=== PATIENT | female | born 1980 | race Two or more races ===

== ENCOUNTER 2017-12-24 05:20 | Inpatient (IN) | payer MEDICAID ==
[2017-12-24] MEDS ORDERED: LIDOCAINE 1% (MPF) 30 ML INJ (05:44)
[2017-12-24] MEDS ORDERED: METHYLERGONOVINE 0.2 MG INJ IM ×2 (06:00→06:30)
[2017-12-24] MEDS ORDERED: MISOPROSTOL 200 MCG TAB PR ×2 (06:00→06:30)
[2017-12-24] MEDS ORDERED: OXYTOCIN 30 UNITS/LR 500 ML IV ×2 (06:00→06:30)
[2017-12-24] MEDS ORDERED: CARBOPROST 250 MCG INJ IM ×2 (06:00→06:30)
[2017-12-24] MEDS ORDERED: LIDOCAINE 1% (MPF) 30 ML INJ INJ (06:00)
[2017-12-24] MEDS ORDERED: IBUPROFEN 600 MG TAB PO (06:00)
[2017-12-24] MEDS ORDERED: OXYCODONE/ACETAMINOPHEN (5/325) TAB PO (06:00)
[2017-12-24] MEDS: OXYTOCIN 30 UNITS/LR 500 ML IV ×3 (06:02→10:50)
[2017-12-24] MEDS: LACTATED RINGER'S 1,000 ML IV ×3 (06:02→21:40)
[2017-12-24 06:24] LABS: ADD MAN DIFF? NO
[2017-12-24] MEDS: LACTATED RINGER'S 1,000 ML IV* ×3 (06:26→22:26)
[2017-12-24 06:27] LABS: BASOPHILS % 0.4 % (0.0-2.0); EOSINOPHILS # 0.1 10^3/ul (0.0-0.5); EOSINOPHILS % 0.5 % (0.0-7.0); HEMATOCRIT 39.2 % (37.0-47.0); HEMOGLOBIN 13.1 g/dl (12.0-16.0); LYMPHOCYTES % 21.2 % (15.0-51.0); MEAN CORPUSCULAR HEMOGLOBIN 30.6 pg (29.0-33.0); MEAN CORPUSCULAR HGB CONC 33.4 g/dl (32.0-37.0); MEAN CORPUSCULAR VOLUME 91.6 fl (82.0-101.0); MEAN PLATELET VOLUME 12.8 fl (7.4-10.4); MONOCYTE # 0.5 10^3/ul (0.3-0.9); MONOCYTES % 5.3 % (0.0-11.0); NEUTROPHIL # 6.8 10^3/ul (1.6-7.5); NEUTROPHILS % 71.3 % (39.0-77.0); PLATELET COUNT 183 10^3/UL (140-415); RED BLOOD COUNT 4.28 10^6/ul (4.20-5.40); RED CELL DISTRIBUTION WIDTH 14.6 % (11.5-14.5)
[2017-12-24 06:27] LABS: WHITE BLOOD COUNT 9.5 10^3/ul (4.8-10.8)
[2017-12-24] MEDS ORDERED: ACETAMINOPHEN 325 MG TAB PO ×2 (06:30)
[2017-12-24] MEDS ORDERED: ONDANSETRON 4 MG INJ IV (06:30)
[2017-12-24] MEDS ORDERED: SENNA/DOCUSATE NA (8.6MG/50MG) TAB PO (06:30)
[2017-12-24] MEDS ORDERED: MAGNESIUM HYDROXIDE 30ML CUP PO (06:30)
[2017-12-24 06:53] LABS: INR 0.95; PARTIAL THROMBOPLASTIN TIME 29.5 Sec (25.0-35.0); PROTIME 12.8 Sec (11.9-14.9)
[2017-12-24 07:16] LABS: HEPATITIS B SURFACE ANTIGEN NEGATIVE (NEGATIVE)
[2017-12-24] MEDS: LANOLIN 7 GM TUBE TOP (10:51)
[2017-12-24] MEDS: WITCH HAZEL/GLYCERIN PAD PR (10:51)
[2017-12-24] MEDS: BENZOCAINE 20% 56 ML SPRAY TOP (10:51)
[2017-12-24] MEDS: DIBUCAINE 1% 30 GM OINT PR (10:51)
[2017-12-24 22:41] LABS: RAPID PLASMA REAGIN NONREACTIVE (NR)
[2017-12-25] MEDS: IBUPROFEN 600 MG TAB PO ×4 (00:02→23:59)
[2017-12-25] MEDS: LACTATED RINGER'S 1,000 ML IV (05:40)
[2017-12-25] MEDS: LACTATED RINGER'S 1,000 ML IV* (06:26)
[2017-12-25] MEDS: SENNA/DOCUSATE NA (8.6MG/50MG) TAB PO ×2 (08:44→21:34)
[2017-12-25 10:22] LABS: ADD MAN DIFF? NO
[2017-12-25 10:28] LABS: WHITE BLOOD COUNT 8.1 10^3/ul (4.8-10.8)
[2017-12-25 10:28] LABS: BASOPHILS % 0.4 % (0.0-2.0); EOSINOPHILS % 0.5 % (0.0-7.0); HEMATOCRIT 33.2 % (37.0-47.0); HEMOGLOBIN 11.3 g/dl (12.0-16.0); LYMPHOCYTES # 1.6 10^3/ul (0.8-2.9); LYMPHOCYTES % 20.2 % (15.0-51.0); MEAN CORPUSCULAR HEMOGLOBIN 31.3 pg (29.0-33.0); MEAN PLATELET VOLUME 12.7 fl (7.4-10.4); MONOCYTE # 0.4 10^3/ul (0.3-0.9); MONOCYTES % 4.8 % (0.0-11.0); NEUTROPHILS % 73.5 % (39.0-77.0); PLATELET COUNT 147 10^3/UL (140-415); RED BLOOD COUNT 3.61 10^6/ul (4.20-5.40); RED CELL DISTRIBUTION WIDTH 15.1 % (11.5-14.5)
[2017-12-26] MEDS: IBUPROFEN 600 MG TAB PO ×2 (06:00→11:40)
[2017-12-26] MEDS: SENNA/DOCUSATE NA (8.6MG/50MG) TAB PO (09:51)
== END 2017-12-26 12:15 | disposition home or self-care (01) | DRG 775 ==
LOC: OBT 05:20 → L-D 05:25 → PP1 08:22
PROVIDERS: Obstetrics & Gynecology
PROC: 10E0XZZ Delivery of Products of Conception, External Approach (ICD-10-PCS; principal; 2017-12-24)
PROC: 0HQ9XZZ Repair Perineum Skin, External Approach (ICD-10-PCS; 2017-12-24)
PROC: 4A1HXCZ Monitoring of Products of Conception, Cardiac Rate, External Approach (ICD-10-PCS; 2017-12-24)
DX: O70.0 First degree perineal laceration during delivery (principal); Z3A.39 39 weeks gestation of pregnancy; Z37.0 Single live birth
CPT/HCPCS: 85025; 85610; 85730; 86592; 86850; 86900; 86901; 87340